=== PATIENT | female | born 1985 | race Caucasian/White ===

== ENCOUNTER 2017-04-28 16:16 | Inpatient (IN) | payer MEDICAID, OTHER ==
[~2017-04-28] VITALS: Ht 160 cm; Wt 59.0 kg
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
[2017-04-28 16:48] LABS: BASOPHILS % (AUTO) 0.4 % (0.0-2.0); EOSINOPHILS % (AUTO) 0.5 % (0.0-3.0); LYMPHOCYTES % (AUTO) 20.9 % (20.0-45.0); MEAN CORPUSCULAR HEMOGLOBIN 31.6 PG (27.0-31.0); MEAN CORPUSCULAR VOLUME 96 FL (80-99); MEAN PLATELET VOLUME 6.8 FL (6.5-10.1); MONOCYTES % (AUTO) 5.4 % (1.0-10.0); NEUTROPHILS % (AUTO) 72.8 % (45.0-75.0); PLATELET COUNT 382 K/UL (150-450); RED BLOOD COUNT 4.31 M/UL (4.20-5.40); RED CELL DISTRIBUTION WIDTH 12.2 % (11.6-14.8); WHITE BLOOD COUNT 10.4 K/UL (4.8-10.8)
[2017-04-28 16:59] LABS: APPEARANCE,URINE CLEAR; KETONES,URINE NEGATIVE (NEGATIVE); LEUKOCYTE ESTERASE ,URINE 1+ (NEGATIVE); NITRITE,URINE NEGATIVE (NEGATIVE); PH,URINE 9 (4.5-8.0); PROTEIN,URINE NEGATIVE (NEGATIVE); UROBILINOGEN,URINE NORMAL MG/DL (0.0-1.0)
[2017-04-28 17:08] LABS: ACETAMINOPHEN < 10 ug/mL (10-30); ALANINE AMINOTRANSFERASE 12 U/L (3-33); ALBUMIN/GLOBULIN RATIO 1.8 (1.0-2.7); ALCOHOL < 10 mg/dL; ANION GAP 17 (5-15); ASPARTATE AMINO TRANSFERASE 10 U/L (5-40); CALCIUM 9.8 mg/dL (8.6-10.2); CARBON DIOXIDE 25 mEQ/L (20-30); CHLORIDE 100 mEQ/L (98-107); CREATININE 0.8 mg/dL (0.5-0.9); GLOMERULAR FILTRATION RATE > 60 mL/min (>60); HEMOLYSIS 0; POTASSIUM 3.8 mEQ/L (3.4-4.9); SODIUM 142 mEQ/L (135-145); TOTAL PROTEIN 7.5 g/dL (6.6-8.7)
[2017-04-28 17:12] VITALS: BP 94/50
[2017-04-28 17:16] LABS: BACTERIA,URINE FEW /HPF; RBC,URINE 0-2 /HPF (0 - 2); SQUAMOUS EPITHELIAL CELL,UR FEW /LPF (NONE/OCC)
[2017-04-28 19:03] LABS: ABG BASE EXCESS -2.6
[2017-04-28 19:04] LABS: ABG ALLEN TEST POSITIVE
[2017-04-28] MEDS ORDERED: UNOBMED (19:11)
[2017-04-28 19:12] VITALS: BP 135/72
[2017-04-28] MEDS ORDERED: TOPAMAX25 MG ORAL (19:19)
[2017-04-28] MEDS ORDERED: GABAPENTIN800 MG ORAL (19:19)
[2017-04-28] MEDS ORDERED: PROPRANOLOL HCL40 MG ORAL (19:19)
[2017-04-28 20:12] VITALS: BP 138/74
[2017-04-28 21:12] VITALS: BP 135/78
[2017-04-28 22:00] VITALS: BP 154/73
[2017-04-28] MEDS ORDERED: Morphine Sulfate 4mg/ml Inj IVP PRN (22:15)
[2017-04-28] MEDS ORDERED: Nitroglycerin Subl 0.4mg tab (Bottle Of 25) SL PRN (22:15)
[2017-04-28] MEDS ORDERED: DuoNeb 0.5-3(2.5)mg/3ml neb HHN PRN (22:15)
[2017-04-28] MEDS ORDERED: LORazepam Inj 2mg/ml 1ml IV PRN (22:15)
[2017-04-28 23:00] VITALS: BP 144/74
[2017-04-28] MEDS: D5 1/2NS 1,000 ML IV SCH (23:33)
[2017-04-29] VITALS (20 sets, daily range): BP systolic 86–147; BP diastolic 57–82
[2017-04-29 05:14] LABS: BASOPHILS % (AUTO) 0.3 % (0.0-2.0); EOSINOPHILS % (AUTO) 0.3 % (0.0-3.0); LYMPHOCYTES % (AUTO) 16.5 % (20.0-45.0); MEAN CORPUSCULAR HEMOGLOBIN 31.6 PG (27.0-31.0); MEAN CORPUSCULAR HGB CONC 33.1 G/DL (32.0-36.0); MEAN CORPUSCULAR VOLUME 96 FL (80-99); MEAN PLATELET VOLUME 7.3 FL (6.5-10.1); MONOCYTES % (AUTO) 8.4 % (1.0-10.0); NEUTROPHILS % (AUTO) 74.5 % (45.0-75.0); PLATELET COUNT 374 K/UL (150-450); RED BLOOD COUNT 3.97 M/UL (4.20-5.40); RED CELL DISTRIBUTION WIDTH 12.1 % (11.6-14.8); WHITE BLOOD COUNT 12.7 K/UL (4.8-10.8)
[2017-04-29 05:52] LABS: ALANINE AMINOTRANSFERASE 10 U/L (3-33); ASPARTATE AMINO TRANSFERASE 8 U/L (5-40); BILIRUBIN,DIRECT 0.1 mg/dL (0.1-0.3); HEMOLYSIS 3; LACTATE DEHYDROGENASE 132 U/L (135-230); PHOSPHORUS 2.5 mg/dL (2.5-4.8)
[2017-04-29 06:21] LABS: ALANINE AMINOTRANSFERASE 9 U/L (3-33); ALBUMIN/GLOBULIN RATIO 1.7 (1.0-2.7); ANION GAP 17 (5-15); ASPARTATE AMINO TRANSFERASE 9 U/L (5-40); CALCIUM 9.1 mg/dL (8.6-10.2); CARBON DIOXIDE 19 mEQ/L (20-30); CHLORIDE 104 mEQ/L (98-107); CREATININE 0.7 mg/dL (0.5-0.9); GLOMERULAR FILTRATION RATE > 60 mL/min (>60); HEMOLYSIS 6; POTASSIUM 3.8 mEQ/L (3.4-4.9); SODIUM 140 mEQ/L (135-145)
[2017-04-29] MEDS ORDERED: Heparin 5000 units/ml inj SUBQ SCH ×2 (09:00→21:00)
--- NOTE | 2017-04-29 10:23 | History and Physical ---
History of Present Illness General Date patient seen: Apr 29, 2017 Reason for Hospitalization: Altered Level of Consciousness Present Illness HPI 32 year old female with hx of PTSD and depression, Eating disorder brought in from a drug recovery facility with cc of decreasing mentation there. 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 Paramedics initially stated that her John Coma Scale was 3. She vomited. She was obtundet in Er and was intubated and transferred to ICU. Allergies: Coded Allergies: No Known Allergies (Unverified , 04/28/17) Medication History Scheduled Gabapentin* (Gabapentin*), 1,200 MG ORAL THREE TIMES A DAY, (Reported) Propranolol Hcl* (Inderal*), 40 MG ORAL BID, (Reported) Topiramate* (Topamax*), 50 MG ORAL DAILY, (Reported) Miscellaneous Medications Unable to Obtain Medications (Unable To Obtain Meds), (Reported) Patient History Healthcare decision maker Resuscitation status Advanced Directive on File No Past Medical/Surgical History Past Medical/Surgical History: (1) PTSD (post-traumatic stress disorder) Review of Systems All Other Systems: negative except mentioned in HPI Physical Exam General Appearance: WD/WN, no apparent distress Lines, tubes and drains: peripheral, central line HEENT: normocephalic, atraumatic Neck: non-tender, normal alignment Respiratory/Chest: chest wall non-tender, lungs clear Cardiovascular/Chest: normal peripheral pulses, normal rate Abdomen: normal bowel sounds, non tender Genitourinary/Rectal: normal genital exam, normal rectal exam Extremities: normal range of motion Neurologic: charge master coordinator II-XII grossly normal Last 24 Hour Vital Signs Date Time Temp Pulse Resp B/P Pulse Ox O2 Delivery O2 Flow Rate FiO2 04/29/17 09:00 49 18 107/62 100 Mechanical Ventilator 04/29/17 08:30 54 16 04/29/17 08:00 54 04/29/17 08:00 04/29/17 08:00 98.4 54 16 108/67 100 Mechanical Ventilator 04/29/17 07:00 53 16 110/62 100 Mechanical Ventilator 04/29/17 06:53 59 16 04/29/17 06:00 54 16 109/63 100 Mechanical Ventilator 04/29/17 05:02 46 16 04/29/17 05:00 52 16 115/64 100 Mechanical Ventilator 28 04/29/17 04:00 50 16 122/65 100 Mechanical Ventilator 28 04/29/17 04:00 54 04/29/17 04:00 28 04/29/17 03:08 46 16 28 04/29/17 03:00 42 16 109/63 100 Mechanical Ventilator 28 04/29/17 02:00 42 16 134/64 100 Mechanical Ventilator 28 04/29/17 01:08 44 16 28 04/29/17 01:00 51 16 123/69 100 Mechanical Ventilator 28 04/29/17 00:00 97.6 43 16 136/73 100 Mechanical Ventilator 28 04/28/17 23:01 42 16 100 Mechanical Ventilator 28 04/28/17 23:00 46 16 144/74 100 Mechanical Ventilator 28 04/28/17 23:00 28 04/28/17 22:48 28 04/28/17 22:48 41 16 100 Mechanical Ventilator 28 04/28/17 22:46 41 16 28 04/28/17 22:00 42 04/28/17 22:00 41 16 154/73 100 Mechanical Ventilator 28 04/28/17 21:41 97.2 43 16 135/78 100 Mechanical Ventilator 28 04/28/17 21:12 97.2 43 16 135/78 100 Mechanical Ventilator 28 04/28/17 20:40 57 18 28 04/28/17 20:12 41 16 138/74 100 Mechanical Ventilator 28 04/28/17 19:12 41 16 135/72 100 Mechanical Ventilator 28 04/28/17 18:33 28 04/28/17 18:30 55 16 28 04/28/17 18:27 55 16 Mechanical Ventilator 28 04/28/17 17:12 48 15 94/50 100 Room Air 04/28/17 16:11 97.2 50 16 104/58 97 Room Air Intake and Output 04/28/17 04/29/17 19:00 07:00 Intake Total 600 ml Output Total 45 ml 2140 ml Balance -45 ml -1540 ml Intake Oral 0 ml IV Total 600 ml Output Urine Total 45 ml 2140 ml Laboratory Tests Test 04/28/17 16:21 04/28/17 16:29 04/28/17 18:58 04/29/17 04:10 White Blood Count 10.4 K/UL (4.8-10.8) 12.7 K/UL (4.8-10.8) H Red Blood Count 4.31 M/UL (4.20-5.40) 3.97 M/UL (4.20-5.40) L Hemoglobin 13.6 G/DL (12.0-16.0) 12.5 G/DL (12.0-16.0) Hematocrit 41.2 % (37.0-47.0) 37.9 % (37.0-47.0) Mean Corpuscular Volume 96 FL (80-99) 96 FL (80-99) Mean Corpuscular Hemoglobin 31.6 PG (27.0-31.0) H 31.6 PG (27.0-31.0) H Mean Corpuscular Hemoglobin Concent 33.0 G/DL (32.0-36.0) 33.1 G/DL (32.0-36.0) Red Cell Distribution Width 12.2 % (11.6-14.8) 12.1 % (11.6-14.8) Platelet Count 382 K/UL (150-450) 374 K/UL (150-450) Mean Platelet Volume 6.8 FL (6.5-10.1) 7.3 FL (6.5-10.1) Neutrophils (%) (Auto) 72.8 % (45.0-75.0) 74.5 % (45.0-75.0) Lymphocytes (%) (Auto) 20.9 % (20.0-45.0) 16.5 % (20.0-45.0) L Monocytes (%) (Auto) 5.4 % (1.0-10.0) 8.4 % (1.0-10.0) Eosinophils (%) (Auto) 0.5 % (0.0-3.0) 0.3 % (0.0-3.0) Basophils (%) (Auto) 0.4 % (0.0-2.0) 0.3 % (0.0-2.0) Sodium Level 142 mEQ/L (135-145) 140 mEQ/L (135-145) Potassium Level 3.8 mEQ/L (3.4-4.9) 3.8 mEQ/L (3.4-4.9) Chloride Level 100 mEQ/L (98-107) 104 mEQ/L (98-107) Carbon Dioxide Level 25 mEQ/L (20-30) 19 mEQ/L (20-30) L Anion Gap 17 (5-15) H 17 (5-15) H Blood Urea Nitrogen 8 mg/dL (7-23) 6 mg/dL (7-23) L Creatinine 0.8 mg/dL (0.5-0.9) 0.7 mg/dL (0.5-0.9) Estimat Glomerular Filtration Rate > 60 mL/min (>60) > 60 mL/min (>60) Glucose Level 148 mg/dL (74-106) H 116 mg/dL (74-106) H Calcium Level 9.8 mg/dL (8.6-10.2) 9.1 mg/dL (8.6-10.2) Total Bilirubin 0.2 mg/dL (0.0-1.2) < 0.2 mg/dL (0.0-1.2) Aspartate Amino Transf (AST/SGOT) 10 U/L (5-40) 9 U/L (5-40) Alanine Aminotransferase (ALT/SGPT) 12 U/L (3-33) 9 U/L (3-33) Alkaline Phosphatase 76 U/L (35-104) 62 U/L (35-104) Total Protein 7.5 g/dL (6.6-8.7) 6.0 g/dL (6.6-8.7) L Albumin 4.9 g/dL (3.5-5.2) 3.8 g/dL (3.5-5.2) Globulin 2.6 g/dL 2.2 g/dL Albumin/Globulin Ratio 1.8 (1.0-2.7) 1.7 (1.0-2.7) Salicylates Level < 1 mg/dL (10-30) L Acetaminophen Level < 10 ug/mL (10-30) L Serum Alcohol < 10 mg/dL Urine Color Pale yellow Urine Appearance Clear Urine pH 9 (4.5-8.0) Urine Specific [place] 1.015 (1.005-1.035) Urine Protein Negative (NEGATIVE) Urine Glucose (UA) Negative (NEGATIVE) Urine Ketones Negative (NEGATIVE) Urine Occult Blood Negative (NEGATIVE) Urine Nitrite Negative (NEGATIVE) Urine Bilirubin Negative (NEGATIVE) Urine Urobilinogen Normal MG/DL (0.0-1.0) Urine Leukocyte Esterase 1+ (NEGATIVE) H Urine RBC 0-2 /HPF (0 - 2) Urine WBC 2-4 /HPF (0 - 2) Urine Squamous Epithelial Cells Few /LPF (NONE/OCC) Urine Bacteria Few /HPF (NONE) Urine HCG, Qualitative Negative Urine Opiates Screen Negative (NEGATIVE) Urine Barbiturates Screen Negative (NEGATIVE) Phencyclidine (PCP) Screen Negative (NEGATIVE) Urine Amphetamines Screen Negative (NEGATIVE) Urine Benzodiazepines Screen Positive (NEGATIVE) H Urine Cocaine Screen Negative (NEGATIVE) Urine Marijuana (THC) Screen Negative (NEGATIVE) Arterial Blood pH 7.398 (7.350-7.450) Arterial Blood Partial Pressure CO2 36.0 mmHg (35.0-45.0) Arterial Blood Partial Pressure O2 146.4 mmHg (75.0-100.0) H Arterial Blood HCO3 21.7 mmol/L (22.0-26.0) L Arterial Blood Oxygen Saturation 98.4 % (92.0-98.0) H Arterial Blood Base Excess -2.6 [place] Test Positive Prothrombin Time 10.0 SEC (9.30-11.50) Prothromb Time International Ratio 1.0 (0.9-1.1) Activated Partial Thromboplast Time 28 SEC (23-33) Phosphorus Level 2.5 mg/dL (2.5-4.8) Direct Bilirubin 0.1 mg/dL (0.1-0.3) Lactate Dehydrogenase 132 U/L (135-230) L Height (Feet): 5 Height (Inches): 3.00 Weight (Pounds): 130 Medications Current Medications Medications (Trade) Dose Ordered Sig/Joshua Route PRN Reason Start Time Stop Time Status Last Admin Dose Admin Acetaminophen (Tylenol) 650 mg Q4H PRN ORAL Fever 04/28/17 22:15 05/28/17 22:14 Albuterol/ Ipratropium (DuoNeb 0.5-3(2.5)mg/3ml) 3 ml Q4H PRN HHN Shortness of Breath 04/28/17 22:15 05/03/17 22:14 04/28/17 22:49 Dextrose (Dextrose 50%) STAT PRN IV Hypoglycemia 04/28/17 22:15 05/28/17 22:14 Dextrose/Sodium Chloride (D5 0.45% NS) 1,000 ml @ 75 mls/hr [id number] IV 04/28/17 23:00 05/28/17 22:59 04/28/17 23:33 Heparin Sodium (Porcine) (Heparin 5000 units/ml) 5,000 units EVERY 12 HOURS SUBQ 04/29/17 09:00 05/29/17 08:59 04/29/17 09:35 Lorazepam (Ativan 2mg/ml 1ml) 2 mg Q2H PRN IV agitation 04/28/17 22:15 05/05/17 22:14 Morphine Sulfate (Morphine Sulfate) 4 mg Q4H PRN IVP Severe Pain (Pain Scale 7-10) 04/28/17 22:15 05/05/17 22:14 Nitroglycerin (Ntg) 0.4 mg Q5M PRN SL Prn Chest Pain 04/28/17 22:15 05/28/17 22:14 Ondansetron HCl (Zofran) 4 mg Q6H PRN IVP Nausea & Vomiting 04/28/17 22:15 05/28/17 22:14 Assessment/Plan Problem List: (1) Respiratory failure ICD Codes: J96.90 - Respiratory failure, unspecified, unspecified whether with hypoxia or hypercapnia SNOMED: 395004602 Qualifiers: Qualified Codes: J96.01 - Acute respiratory failure with hypoxia; J96.02 - Acute respiratory failure with hypercapnia (2) PTSD (post-traumatic stress disorder) ICD Codes: F43.10 - Post-traumatic stress disorder, unspecified SNOMED: 75045584 (3) Overdose ICD Codes: T50.901A - Poisoning by unspecified drugs, medicaments and biological substances, accidental (unintentional), initial encounter SNOMED: 44852978 Qualifiers: Qualified Codes: T50.902A - Poisoning by unspecified drugs, medicaments and biological substances, intentional self-harm, initial encounter (4) Acute encephalopathy ICD Codes: G93.40 - Encephalopathy, unspecified SNOMED: 9189306 Respiratory: monitor respiratory rate, adjust FIO2, weaning trial Cardiac: d/c monitoring engineer Renal: F/U I&O, keep IV fluid Infectious Disease: check cultures Gastrointestinal: continue feedings/current rate Endocrine: continue sliding scale insulin Hematologic: transfuse if hgb<8.5 Neurologic: PRN Ativan, PRN Morphine, keep patient comfortable Notes Reviewed: radiosonde specialist, renal Discussed with: nurses, consultants, family independence case manager MARLYN SERRANO Apr 29, 2017 10:23
[2017-04-29] MEDS: D5 1/2NS 1,000 ML IV SCH ×2 (12:16→17:50)
--- NOTE | 2017-04-29 12:20 | Diagnostic Imaging Report ---
Indication: Is Technique: Continuous helical CT scanning of the head was performed without intravenous contrast material. Axial and coronal 5 mm sections were generated. Radiation dose was minimized using automated exposure control Dose: Total Dose Length Product - DLP [address] Dose Index - CTDIvol(s) 70.38 mGy. Comparison: None Findings: The ventricular system is normal in size and configuration. There is no shift of midline structures. No abnormal extra-axial fluid collections are noted. There is no evidence of intracerebral bleeding. No other abnormal high or low density areas are noted within the brain. Impression: Normal CT scan of the head without contrast material. This agrees with the preliminary interpretation provided overnight by Dr. Hartman The CT scanner at [facility] is accredited by the [employer] and the scans are performed using protocols designed to limit radiation exposure to as low as reasonably achievable to attain images of sufficient resolution adequate for diagnostic evaluation.
--- NOTE | 2017-04-29 13:43 | Neurology Progress Note ---
Objective Physical Exam Last Vital Signs Date Time Temp Pulse Resp B/P Pulse Ox O2 Delivery O2 Flow Rate FiO2 04/29/17 12:36 57 16 28 04/29/17 12:00 99.0 110/76 100 Mechanical Ventilator Laboratory Tests Test 04/28/17 16:21 04/28/17 16:29 04/28/17 18:58 04/29/17 04:10 White Blood Count 10.4 K/UL (4.8-10.8) 12.7 K/UL (4.8-10.8) H Red Blood Count 4.31 M/UL (4.20-5.40) 3.97 M/UL (4.20-5.40) L Hemoglobin 13.6 G/DL (12.0-16.0) 12.5 G/DL (12.0-16.0) Hematocrit 41.2 % (37.0-47.0) 37.9 % (37.0-47.0) Mean Corpuscular Volume 96 FL (80-99) 96 FL (80-99) Mean Corpuscular Hemoglobin 31.6 PG (27.0-31.0) H 31.6 PG (27.0-31.0) H Mean Corpuscular Hemoglobin Concent 33.0 G/DL (32.0-36.0) 33.1 G/DL (32.0-36.0) Red Cell Distribution Width 12.2 % (11.6-14.8) 12.1 % (11.6-14.8) Platelet Count 382 K/UL (150-450) 374 K/UL (150-450) Mean Platelet Volume 6.8 FL (6.5-10.1) 7.3 FL (6.5-10.1) Neutrophils (%) (Auto) 72.8 % (45.0-75.0) 74.5 % (45.0-75.0) Lymphocytes (%) (Auto) 20.9 % (20.0-45.0) 16.5 % (20.0-45.0) L Monocytes (%) (Auto) 5.4 % (1.0-10.0) 8.4 % (1.0-10.0) Eosinophils (%) (Auto) 0.5 % (0.0-3.0) 0.3 % (0.0-3.0) Basophils (%) (Auto) 0.4 % (0.0-2.0) 0.3 % (0.0-2.0) Sodium Level 142 mEQ/L (135-145) 140 mEQ/L (135-145) Potassium Level 3.8 mEQ/L (3.4-4.9) 3.8 mEQ/L (3.4-4.9) Chloride Level 100 mEQ/L (98-107) 104 mEQ/L (98-107) Carbon Dioxide Level 25 mEQ/L (20-30) 19 mEQ/L (20-30) L Anion Gap 17 (5-15) H 17 (5-15) H Blood Urea Nitrogen 8 mg/dL (7-23) 6 mg/dL (7-23) L Creatinine 0.8 mg/dL (0.5-0.9) 0.7 mg/dL (0.5-0.9) Estimat Glomerular Filtration Rate > 60 mL/min (>60) > 60 mL/min (>60) Glucose Level 148 mg/dL (74-106) H 116 mg/dL (74-106) H Calcium Level 9.8 mg/dL (8.6-10.2) 9.1 mg/dL (8.6-10.2) Total Bilirubin 0.2 mg/dL (0.0-1.2) < 0.2 mg/dL (0.0-1.2) Aspartate Amino Transf (AST/SGOT) 10 U/L (5-40) 9 U/L (5-40) Alanine Aminotransferase (ALT/SGPT) 12 U/L (3-33) 9 U/L (3-33) Alkaline Phosphatase 76 U/L (35-104) 62 U/L (35-104) Total Protein 7.5 g/dL (6.6-8.7) 6.0 g/dL (6.6-8.7) L Albumin 4.9 g/dL (3.5-5.2) 3.8 g/dL (3.5-5.2) Globulin 2.6 g/dL 2.2 g/dL Albumin/Globulin Ratio 1.8 (1.0-2.7) 1.7 (1.0-2.7) Salicylates Level < 1 mg/dL (10-30) L Acetaminophen Level < 10 ug/mL (10-30) L Serum Alcohol < 10 mg/dL Urine Color Pale yellow Urine Appearance Clear Urine pH 9 (4.5-8.0) Urine Specific [place] 1.015 (1.005-1.035) Urine Protein Negative (NEGATIVE) Urine Glucose (UA) Negative (NEGATIVE) Urine Ketones Negative (NEGATIVE) Urine Occult Blood Negative (NEGATIVE) Urine Nitrite Negative (NEGATIVE) Urine Bilirubin Negative (NEGATIVE) Urine Urobilinogen Normal MG/DL (0.0-1.0) Urine Leukocyte Esterase 1+ (NEGATIVE) H Urine RBC 0-2 /HPF (0 - 2) Urine WBC 2-4 /HPF (0 - 2) Urine Squamous Epithelial Cells Few /LPF (NONE/OCC) Urine Bacteria Few /HPF (NONE) Urine HCG, Qualitative Negative Urine Opiates Screen Negative (NEGATIVE) Urine Barbiturates Screen Negative (NEGATIVE) Phencyclidine (PCP) Screen Negative (NEGATIVE) Urine Amphetamines Screen Negative (NEGATIVE) Urine Benzodiazepines Screen Positive (NEGATIVE) H Urine Cocaine Screen Negative (NEGATIVE) Urine Marijuana (THC) Screen Negative (NEGATIVE) Arterial Blood pH 7.398 (7.350-7.450) Arterial Blood Partial Pressure CO2 36.0 mmHg (35.0-45.0) Arterial Blood Partial Pressure O2 146.4 mmHg (75.0-100.0) H Arterial Blood HCO3 21.7 mmol/L (22.0-26.0) L Arterial Blood Oxygen Saturation 98.4 % (92.0-98.0) H Arterial Blood Base Excess -2.6 [place] Test Positive Prothrombin Time 10.0 SEC (9.30-11.50) Prothromb Time International Ratio 1.0 (0.9-1.1) Activated Partial Thromboplast Time 28 SEC (23-33) Phosphorus Level 2.5 mg/dL (2.5-4.8) Direct Bilirubin 0.1 mg/dL (0.1-0.3) Lactate Dehydrogenase 132 U/L (135-230) L Impression/Recommendations Problems: (1) new onset R shoulder twitching, r/o partial seizures. (2) Suicidal overdose (3) Toxic encephalopathy (4) Sinus bradycardia (5) PTSD (post-traumatic stress disorder) Status: not improved Recommendations # [id number] ASHLEY MORALES Apr 29, 2017 13:43
--- NOTE | 2017-04-29 13:51 | Diagnostic Imaging Report ---
Indication: ALOC Technique: One view of the chest Comparison: none Findings: Lungs and pleural spaces are clear. Heart size is normal. Transcutaneous pacemaker paddles overlie the chest. Impression: No acute process This agrees with the preliminary interpretation provided by the emergency room physician
[2017-04-29] MEDS ORDERED: SYNTHROID50 MCG ORAL (14:21)
[2017-04-29] MEDS ORDERED: VISTARIL25 M1 PO (14:21)
[2017-04-29] MEDS ORDERED: LIORESAL20 MG (14:21)
[2017-04-29] MEDS ORDERED: ZYPREXA20 MG ORAL (14:21)
[2017-04-29] MEDS ORDERED: LAMICTAL200 MG ORAL (14:21)
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
[2017-04-29] MEDS ORDERED: Nitroglycerin Subl 0.4mg tab (Bottle Of 25) SL PRN (17:30)
[2017-04-29] MEDS ORDERED: Thiamine 100mg tab ORAL SCH ×2 (18:00)
[2017-04-29] MEDS ORDERED: DuoNeb 0.5-3(2.5)mg/3ml neb HHN PRN (18:15)
[2017-04-29] MEDS ORDERED: LORazepam Inj 2mg/ml 1ml IV PRN (18:15)
[2017-04-29] MEDS ORDERED: Morphine Sulfate 4mg/ml Inj IVP PRN (18:15)
[2017-04-29] MEDS ORDERED: Topiramate 25mg tab ORAL SCH ×2 (21:00)
[2017-04-30] VITALS (9 sets, daily range): BP systolic 83–96; BP diastolic 47–59
--- NOTE | 2017-04-30 00:40 | Consultation ---
Consult Note Consult Note the pt was seen and assessed 04/29. Jeff Mojica M.D. Apr 30, 2017 00:40
[2017-04-30] MEDS: D5 1/2NS 1,000 ML IV SCH ×3 (01:02→18:34)
[2017-04-30] MEDS ORDERED: Nitroglycerin Subl 0.4mg tab (Bottle Of 25) SL PRN (07:05)
[2017-04-30] MEDS ORDERED: LORazepam Inj 2mg/ml 1ml IV PRN (08:15)
--- NOTE | 2017-04-30 08:23 | Diagnostic Imaging Report ---
Indication: TUBE PLCMT Technique: One view of the chest Comparison: none Findings: Interim endotracheal intubation, endotracheal tube tip approximately 4 cm above the glen, in good position. The lungs and pleural spaces are clear. Overlying transcutaneous pacemaker paddles again demonstrated Impression: Satisfactory endotracheal intubation. Other stable findings as noted This agrees with the preliminary interpretation provided by the emergency room physician
[2017-04-30 08:39] LABS: BASOPHILS % (AUTO) 0.3 % (0.0-2.0); EOSINOPHILS % (AUTO) 0.3 % (0.0-3.0); LYMPHOCYTES % (AUTO) 22.2 % (20.0-45.0); MEAN CORPUSCULAR HEMOGLOBIN 31.4 PG (27.0-31.0); MEAN CORPUSCULAR HGB CONC 33.1 G/DL (32.0-36.0); MEAN CORPUSCULAR VOLUME 95 FL (80-99); MEAN PLATELET VOLUME 7.2 FL (6.5-10.1); MONOCYTES % (AUTO) 11.3 % (1.0-10.0); PLATELET COUNT 336 K/UL (150-450); RED BLOOD COUNT 3.85 M/UL (4.20-5.40); RED CELL DISTRIBUTION WIDTH 12.4 % (11.6-14.8); WHITE BLOOD COUNT 9.5 K/UL (4.8-10.8)
[2017-04-30 08:49] LABS: ALANINE AMINOTRANSFERASE 8 U/L (3-33); ALBUMIN/GLOBULIN RATIO 1.5 (1.0-2.7); ANION GAP 14 (5-15); ASPARTATE AMINO TRANSFERASE 6 U/L (5-40); CARBON DIOXIDE 22 mEQ/L (20-30); CHLORIDE 105 mEQ/L (98-107); CREATININE 0.7 mg/dL (0.5-0.9); GLOMERULAR FILTRATION RATE > 60 mL/min (>60); HEMOLYSIS 2; MAGNESIUM 1.9 mg/dL (1.7-2.5); PHOSPHORUS 3.3 mg/dL (2.5-4.8); POTASSIUM 3.5 mEQ/L (3.4-4.9); SODIUM 141 mEQ/L (135-145)
[2017-04-30] MEDS ORDERED: Pantoprazole Inj IVP SCH (09:00)
[2017-04-30] MEDS ORDERED: Topiramate 25mg tab ORAL SCH (09:00)
[2017-04-30] MEDS: Thiamine 100mg tab ORAL SCH (09:20)
[2017-04-30] MEDS: Heparin 5000 units/ml inj SUBQ SCH ×2 (09:22→20:17)
--- NOTE | 2017-04-30 09:44 | Pulmonology Progress Note ---
Assessment/Plan Assessment/Plan ASSESSMENT acute toxic encepahlopathy2 to Valium OD Suicidal attempt with Valium OD acute respiratory failure requiting intubation s/p extubation possible seizure disorder History of bipolar disorder with several suicide episodes History of eating disorder. History of substance abuse. PLAN OF CARE extubated urine tox scrren + benzo [facility] floor neuro follows CT head no acute intracranial pathology Carotid essentially negative EEG c/w toxic encephalopathy but no postictal component started on Topamax and Neurontin seizure precautions IVF started po diet clinically improving no sedation DVT prophylaxis psych follows need psych clearance case discussed and evaluated by supervising physician Subjective Allergies: Coded Allergies: No Known Allergies (Unverified , 04/28/17) Subjective extubated transferred to [facility] floor patient stated she does not remember which meds she took Objective Last 24 Hour Vital Signs Date Time Temp Pulse Resp B/P Pulse Ox O2 Delivery O2 Flow Rate FiO2 04/30/17 09:33 54 88/47 04/30/17 09:27 97.7 20 99 Nasal Cannula 2.0 04/30/17 08:16 98.1 58 21 88/59 98 Nasal Cannula 2.0 04/30/17 07:38 79 16 Room Air 04/30/17 04:00 63 04/30/17 04:00 97.0 60 20 96/58 98 Room Air 04/30/17 00:00 60 04/30/17 00:00 97.2 66 20 91/57 Room Air 04/29/17 20:19 75 18 Room Air 04/29/17 20:00 76 04/29/17 20:00 97.7 75 20 94/57 98 Room Air 04/29/17 17:59 97.5 62 16 98/58 99 Room Air 04/29/17 17:00 60 18 86/59 100 Nasal Cannula 2.0 04/29/17 16:00 98.6 61 18 97/60 100 Nasal Cannula 2.0 04/29/17 16:00 60 04/29/17 15:00 64 19 99/63 100 Nasal Cannula 2.0 04/29/17 14:00 85 18 147/82 100 Nasal Cannula 2.0 04/29/17 13:03 71 18 147/62 100 Nasal Cannula 2.0 04/29/17 12:36 57 16 28 04/29/17 12:00 28 04/29/17 12:00 61 04/29/17 12:00 99.0 62 16 110/76 100 Mechanical Ventilator 28 04/29/17 11:03 61 16 28 04/29/17 11:00 66 16 128/68 100 Mechanical Ventilator 28 04/29/17 10:00 55 16 112/67 100 Mechanical Ventilator 28 Intake and Output 04/29/17 04/30/17 19:00 07:00 Intake Total 635 ml 750 ml Output Total 1250 ml 1400 ml Balance -615 ml -650 ml Intake Oral 0 ml IV Total 635 ml 750 ml Output Urine Total 1250 ml 1400 ml General Appearance: WD/WN, no acute distress HEENT: normocephalic, atraumatic, anicteric, mucous membranes moist, PERRL Respiratory/Chest: chest wall non-tender, no respiratory distress, no accessory muscle use Cardiovascular: normal peripheral pulses, normal rate, regular rhythm, no JVD Abdomen: normal bowel sounds, soft, non tender, no organomegaly Genitourinary: normal external genitalia Extremities: no edema Neurologic/Psychiatric: no motor/sensory deficits, alert, oriented x 3, responsive Musculoskeletal: normal muscle bulk Laboratory Tests 04/30/17 08:00: White Blood Count 9.5, Red Blood Count 3.85L, Hemoglobin 12.1, Hematocrit 36.5L , Mean Corpuscular Volume 95, Mean Corpuscular Hemoglobin 31.4H, Mean Corpuscular Hemoglobin Concent 33.1, Red Cell Distribution Width 12.4, Platelet Count 336, Mean Platelet Volume 7.2, Neutrophils (%) (Auto) 66.0, Lymphocytes (% ) (Auto) 22.2, Monocytes (%) (Auto) 11.3H, Eosinophils (%) (Auto) 0.3, Basophils (%) (Auto) 0.3, Sodium Level 141, Potassium Level 3.5, Chloride Level 105, Carbon Dioxide Level 22, Anion Gap 14, Blood Urea Nitrogen 5L, Creatinine 0.7, Estimat Glomerular Filtration Rate > 60, Glucose Level 111H, Calcium Level 9.0, Phosphorus Level 3.3, Magnesium Level 1.9, Total Bilirubin 0.2, Aspartate Amino Transf (AST/SGOT) 6, Alanine Aminotransferase (ALT/SGPT) 8, Alkaline Phosphatase 62, Total Protein 6.0L, Albumin 3.6, Globulin 2.4, Albumin/Globulin Ratio 1.5 Current Medications Medications (Trade) Dose Ordered Sig/Joshua Route PRN Reason Start Time Stop Time Status Last Admin Dose Admin Acetaminophen (Tylenol) 650 mg Q4H PRN ORAL Fever 04/30/17 10:15 05/30/17 10:14 Albuterol/ Ipratropium (DuoNeb 0.5-3(2.5)mg/3ml) 3 ml Q4H PRN HHN Shortness of Breath 04/30/17 10:15 05/05/17 10:14 Dextrose (Dextrose 50%) STAT PRN IV Hypoglycemia 04/30/17 22:15 05/30/17 22:14 Dextrose/Sodium Chloride (D5 0.45% NS) 1,000 ml @ 75 mls/hr [id number] IV 04/30/17 07:00 05/30/17 06:59 Escitalopram Oxalate (Lexapro) 10 mg DAILY ORAL 04/30/17 09:00 05/30/17 08:59 04/30/17 09:20 Gabapentin (Neurontin) 800 mg THREE TIMES A DAY ORAL 04/30/17 09:00 05/30/17 08:59 04/30/17 09:20 Heparin Sodium (Porcine) (Heparin 5000 units/ml) 5,000 units EVERY 12 HOURS SUBQ 04/30/17 09:00 05/30/17 08:59 04/30/17 09:22 Lorazepam (Ativan 2mg/ml 1ml) 2 mg Q2H PRN IV agitation 04/30/17 08:15 05/07/17 08:14 Morphine Sulfate (Morphine Sulfate) 4 mg Q4H PRN IVP Severe Pain (Pain Scale 7-10) 04/30/17 10:15 05/07/17 10:14 Nitroglycerin (Ntg) 0.4 mg Q5M PRN SL Prn Chest Pain 04/30/17 07:05 05/30/17 07:04 Ondansetron HCl (Zofran) 4 mg Q6H PRN IVP Nausea & Vomiting 04/30/17 10:15 05/30/17 10:14 Pantoprazole (Protonix) 40 mg DAILY ORAL 04/30/17 09:00 05/30/17 08:59 04/30/17 09:20 Thiamine HCl (Vitamin B1) 100 mg DAILY ORAL 04/30/17 09:00 05/30/17 08:59 04/30/17 09:20 Topiramate (Topamax) 50 mg DAILY ORAL 04/30/17 09:00 05/30/17 08:59 Zach ([facility])Elida NP Apr 30, 2017 09:44
[2017-04-30] MEDS ORDERED: Morphine Sulfate 4mg/ml Inj IVP PRN (10:15)
[2017-04-30] MEDS ORDERED: DuoNeb 0.5-3(2.5)mg/3ml neb HHN PRN (10:15)
[2017-04-30] MEDS: Topiramate 25mg tab ORAL SCH (11:34)
--- NOTE | 2017-04-30 12:41 | Diagnostic Imaging Report ---
APPROVED REPORT CPT Code: 54328 RIGHT SIDE: CCA - Imaging reveals no significant plaque within the extracranial carotid arteries. The Doppler spectral flow analysis is within normal limits throughout the extracranial carotid arteries. VERTEBRAL - The vertebral artery is patent, without evidence of stenosis or steal. LEFT SIDE: CCA - Imaging reveals no significant plaque within the extracranial carotid arteries. The Doppler spectral flow analysis is within normal limits throughout the extracranial carotid arteries. VERTEBRAL- The Left vertebral artery was not well visualized.
--- NOTE | 2017-04-30 16:27 | Neurology Progress Note ---
Interim History Interim History Interim History Ms. Curran feels better. She is alert and bright today. She is unable to remember the events that brought her to the hospital. She has had no twitching movements of her right upper extremity today. She denies any new neurologic symptoms. Review of Systems Neuro Review of Systems Benign. Objective Physical Exam Last Vital Signs Date Time Temp Pulse Resp B/P Pulse Ox O2 Delivery O2 Flow Rate FiO2 04/30/17 16:02 97.5 61 18 92/58 100 Room Air 04/30/17 11:50 2.0 04/29/17 12:36 28 Laboratory Tests Test 04/30/17 08:00 White Blood Count 9.5 K/UL (4.8-10.8) Red Blood Count 3.85 M/UL (4.20-5.40) L Hemoglobin 12.1 G/DL (12.0-16.0) Hematocrit 36.5 % (37.0-47.0) L Mean Corpuscular Volume 95 FL (80-99) Mean Corpuscular Hemoglobin 31.4 PG (27.0-31.0) H Mean Corpuscular Hemoglobin Concent 33.1 G/DL (32.0-36.0) Red Cell Distribution Width 12.4 % (11.6-14.8) Platelet Count 336 K/UL (150-450) Mean Platelet Volume 7.2 FL (6.5-10.1) Neutrophils (%) (Auto) 66.0 % (45.0-75.0) Lymphocytes (%) (Auto) 22.2 % (20.0-45.0) Monocytes (%) (Auto) 11.3 % (1.0-10.0) H Eosinophils (%) (Auto) 0.3 % (0.0-3.0) Basophils (%) (Auto) 0.3 % (0.0-2.0) Sodium Level 141 mEQ/L (135-145) Potassium Level 3.5 mEQ/L (3.4-4.9) Chloride Level 105 mEQ/L (98-107) Carbon Dioxide Level 22 mEQ/L (20-30) Anion Gap 14 (5-15) Blood Urea Nitrogen 5 mg/dL (7-23) L Creatinine 0.7 mg/dL (0.5-0.9) Estimat Glomerular Filtration Rate > 60 mL/min (>60) Glucose Level 111 mg/dL (74-106) H Calcium Level 9.0 mg/dL (8.6-10.2) Phosphorus Level 3.3 mg/dL (2.5-4.8) Magnesium Level 1.9 mg/dL (1.7-2.5) Total Bilirubin 0.2 mg/dL (0.0-1.2) Aspartate Amino Transf (AST/SGOT) 6 U/L (5-40) Alanine Aminotransferase (ALT/SGPT) 8 U/L (3-33) Alkaline Phosphatase 62 U/L (35-104) Total Protein 6.0 g/dL (6.6-8.7) L Albumin 3.6 g/dL (3.5-5.2) Globulin 2.4 g/dL Albumin/Globulin Ratio 1.5 (1.0-2.7) Neurologic Exam Objective PHYSICAL EXAMINATION: GENERAL: She is a well-developed, well-nourished, lady, lying in bed , in no acute distress. HEAD: Normocephalic and atraumatic. EENT: Examination benign. NECK: No neck rigidity was observed. NEUROLOGIC EXAMINATION: MENTAL STATUS EXAMINATION: She was awake and alert. She was oriented to [employer], [employer] and April 30, 2017. She was able to remember 3/3 words immediately and in 1 and 3 minutes. He was able to remember presidents Trump through Zimmerman [employer]. Her mathematical skills were good. Her visuospatial function was preserved. SPEECH: She had no dysarthria. LANGUAGE: She had no aphasia. CRANIAL NERVE EXAMINATION: II: The visual huynh were intact on confrontation testing. III, IV & : The external ocular movements were full and pupils 3 mm in diameter, equal, round, regular, and reactive to light. V: She had normal facial sensations and the temporales, masseters, and pterygoids functioned normally. VII: She had normal facial expressions and no facial asymmetry. VIII: She was able to hear well bilaterally and had no nystagmus. IX: The palate moved symmetrically on phonation. X: She had no hoarseness of voice. XI: The sternocleidomastoids and trapezii functioned normally. XII: The tongue was in midline without any fasciculations or atrophy. MOTOR SYSTEM: The tone was normal in all four extremities. Examination of muscle mass revealed no focal wasting. Examination of power revealed G 5/5 in all muscle groups except for G 4/5 in the left finger extensors. SENSORY EXAMINATION: She had intact sensations to pin prick and light touch. REFLEXES: 1+ and bilaterally symmetrical at the biceps, triceps, brachioradialis and knees. Trace+ at both ankles. The plantar responses were flexor bilaterally. STANCE: She stood up with contact guard. GAIT: She walked well with contact guard. Impression/Recommendations Diagnostic Impression 1. Ms. Christina Curran is a 32-year-old, right-handed, lady, who was hospitalized for an altered mental state due to a possible drug overdose. She was also noted to have some right upper extremity twitching. 2. She has improved markedly today and has had no further right upper extremity twitching. 3. On neurologic examination she has left finger extensor weakness and globally diminished reflexes but no other pathology. 4. The EEG revealed a moderate encephalopathy with a toxic component but no inter-ictal phenomena. 5. The patient's history and neurological examination are most compatible with a toxic encephalopathy that is now resolving.. Recommendations 1. Continue present management. 2. No further neurologic intervention is needed. 3. Will stop following. Humza Jo M.D., M.S.P.Emerita. HUMZA JO Apr 30, 2017 16:27
--- NOTE | 2017-04-30 16:46 | Electroencephalogram ---
DATE OF PROCEDURE: 04/29/2017 REQUESTING PHYSICIAN: Link Colon M.D. READING PHYSICIAN: Silas Acosta M.D. PROCEDURE PERFORMED: Electroencephalogram. HISTORY: This EEG was performed on a 32-year-old lady who was hospitalized for a drug overdose and was noted to have some abnormal involuntary movements of the right upper extremity. The purpose of this EEG was to evaluate the patient for the degree and type of cerebral dysfunction and to exclude ongoing ictal or interictal phenomena. TECHNICAL NOTE: This EEG was performed on a [employer] with electrodes placed on the scalp according to the International 10-20 System. [id number] and [id number] montages were used. The EEG was technically satisfactory and was performed while the patient was in the awake and drowsy states. OBSERVATIONS: During wakefulness, the background activity consisted of 6-6.5 Hz theta activity. Throughout the tracing, a moderate amount of superimposed 16-18 Hz beta activity was also seen. Drowsiness was characterized by slowing of the background in the 4-5 Hz theta range with some intermixed delta frequencies. No focal abnormalities or epileptiform discharges were seen. Photic stimulation was performed at various different frequencies and produced no abnormalities. IMPRESSION: This is an abnormal EEG characterized by slowing of the background in the 6-6.5 Hz theta range in the best awake state. In addition, throughout the tracing 16-18 Hz beta activity was also seen. COMMENT: This study is consistent with an encephalopathy of a moderate degree, most probably of a toxic nature as evidenced by the abundant beta activity seen throughout the tracing. Silas Acosta M.D., M.S.P.H. DR: LEAH JOB#: [id number] [facility] MED[facility] CENTERYohannes
--- NOTE | 2017-04-30 19:11 | Cardiology Report ---
APPROVED REPORT EKG Measurement Heart [id number] Sinus bradycardia Otherwise normal ECG
[2017-05-01] VITALS: BP 87/43
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
[2017-05-01 04:00] VITALS: BP 94/56
[2017-05-01 08:00] VITALS: BP 99/54
[2017-05-01] MEDS: Thiamine 100mg tab ORAL SCH (08:29)
[2017-05-01] MEDS: Topiramate 25mg tab ORAL SCH (08:29)
[2017-05-01] MEDS: Heparin 5000 units/ml inj SUBQ SCH (08:33)
[2017-05-01] MEDS: D5 1/2NS 1,000 ML IV SCH (08:36)
[2017-05-01 12:00] VITALS: BP 100/63
--- NOTE | 2017-05-01 12:39 | Pulmonology Progress Note ---
Assessment/Plan Assessment/Plan ASSESSMENT acute toxic encepahlopathy2 to Valium OD Suicidal attempt with Valium OD acute respiratory failure requiting intubation s/p extubation possible seizure disorder History of bipolar disorder with several suicide episodes History of eating disorder. History of substance abuse. PLAN OF CARE extubated urine tox screen + [facility] floor neuro follows CT head no acute intracranial pathology Carotid essentially negative EEG c/w toxic encephalopathy but no postictal component started on Topamax and Neurontin seizure precautions tolerates po diet dc IVf medically stable no sedation DVT prophylaxis psych follows patient medically cleared for PET team eval patient will need further psychiatric treatment patient is a high risk as per psychiatrist case discussed and evaluated by supervising physician Subjective Allergies: Coded Allergies: No Known Allergies (Unverified , 04/28/17) Subjective extubated subsequently transferred to [facility] floor patient stated she does not remember which meds she took psychiatrist follows Objective Last 24 Hour Vital Signs Date Time Temp Pulse Resp B/P Pulse Ox O2 Delivery O2 Flow Rate FiO2 05/01/17 12:00 97.7 59 20 100/63 99 Room Air 05/01/17 08:00 98.2 76 20 99/54 97 Room Air 05/01/17 06:44 76 15 Room Air 05/01/17 04:00 97.3 53 18 94/56 97 Room Air 05/01/17 00:00 97.5 55 18 87/43 96 Room Air 04/30/17 21:14 92/53 04/30/17 20:00 97.9 55 18 83/51 97 Room Air 04/30/17 18:53 59 17 Room Air 04/30/17 16:02 97.5 61 18 92/58 100 Room Air Intake and Output 04/30/17 05/01/17 19:00 07:00 Intake Total 1020 ml 900 ml Output Total 2000 ml 1200 ml Balance -980 ml -300 ml Intake Oral 1020 ml IV Total 900 ml Output Urine Total 2000 ml 1200 ml Objective General Appearance: WD/WN, no acute distress HEENT: normocephalic, atraumatic, anicteric, mucous membranes moist, PERRL Respiratory/Chest: chest wall non-tender, no respiratory distress, no accessory muscle use Cardiovascular: normal peripheral pulses, normal rate, regular rhythm, no JVD Abdomen: normal bowel sounds, soft, non tender, no organomegaly Genitourinary: normal external genitalia Extremities: no edema Neurologic/Psychiatric: no motor/sensory deficits, alert, oriented x 3, responsive Musculoskeletal: normal muscle bulk Current Medications Medications (Trade) Dose Ordered Sig/Joshua Route PRN Reason Start Time Stop Time Status Last Admin Dose Admin Acetaminophen (Tylenol) 650 mg Q4H PRN ORAL Fever 04/30/17 10:15 05/30/17 10:14 Albuterol/ Ipratropium (DuoNeb 0.5-3(2.5)mg/3ml) 3 ml Q4H PRN HHN Shortness of Breath 04/30/17 10:15 05/05/17 10:14 Dextrose (Dextrose 50%) STAT PRN IV Hypoglycemia 04/30/17 22:15 05/30/17 22:14 Dextrose/Sodium Chloride (D5 0.45% NS) 1,000 ml @ 75 mls/hr [id number] IV 04/30/17 07:00 05/30/17 06:59 05/01/17 08:36 Diazepam (Valium) 10 mg Q4H PRN ORAL agitation 04/30/17 15:00 05/07/17 14:59 Gabapentin (Neurontin) 800 mg THREE TIMES A DAY ORAL 04/30/17 09:00 05/30/17 08:59 05/01/17 08:29 Heparin Sodium (Porcine) (Heparin 5000 units/ml) 5,000 units EVERY 12 HOURS SUBQ 04/30/17 09:00 05/30/17 08:59 05/01/17 08:33 Morphine Sulfate (Morphine Sulfate) 4 mg Q4H PRN IVP Severe Pain (Pain Scale 7-10) 04/30/17 10:15 05/07/17 10:14 Nitroglycerin (Ntg) 0.4 mg Q5M PRN SL Prn Chest Pain 04/30/17 07:05 05/30/17 07:04 Ondansetron HCl (Zofran) 4 mg Q6H PRN IVP Nausea & Vomiting 04/30/17 10:15 05/30/17 10:14 Pantoprazole (Protonix) 40 mg DAILY ORAL 04/30/17 09:00 05/30/17 08:59 05/01/17 08:28 Quetiapine Fumarate (SEROquel) 100 mg BEDTIME ORAL 6/30/17 21:00 05/30/17 20:59 04/30/17 20:15 Thiamine HCl (Vitamin B1) 100 mg DAILY ORAL 04/30/17 09:00 05/30/17 08:59 05/01/17 08:29 Topiramate (Topamax) 50 mg DAILY ORAL 04/30/17 09:00 05/30/17 08:59 05/01/17 08:29 [facility]Elida NP May 01, 2017 12:39
[2017-05-01 16:00] VITALS: BP 98/67
[2017-05-01] MEDS ORDERED: D5 1/2NS 1000ml IV ONE ×3 (19:29)
[2017-05-01] MEDS ORDERED: Tubing IV Secondary IV ONE (19:29)
--- NOTE | 2017-05-03 08:09 | Cardiology Report ---
APPROVED REPORT EXAM: Two-dimensional and M-mode echocardiogram with Doppler and color Doppler. INDICATION LV function M-Mode DIMENSIONS IVSd0.9 (0.7-1.1cm)Left Atrium (MM)3.0 (1.6-4.0cm) LVDd3.3 (3.5-5.6cm)Aortic Root2.5 (2.0-3.7cm) PWd1.1 (0.7-1.1cm)Aortic Cusp Exc.1.6 (1.5-2.0cm) LVDs2.3 (2.5-4.0cm) PWs1.2 cm Normal left ventricular chamber size, systolic function and wall motion. Left ventricular ejection fraction estimated to be 55 %. No evidence of left ventricular hypertrophy. Anterior Echo-free space, may be due to pericardial fat or effusion. All other cardiac chamber sizes are within normal limits. Normal appearing aortic, mitral, puImonic and tricuspid valves. Mild mitral annulus and aortic root calcification. IVC at normal size with physiologic collapse. A color flow and spectral Doppler study was performed and revealed: No aortic regurgitation. Trace mitral regurgitation. Mitral inflow indicates normal left ventricular diastolic function. Mild tricuspid regurgitation. Tricuspid systolic velocities suggests peak right ventricular systolic pressure of 30 mmHg.
--- NOTE | 2017-05-05 08:52 | Discharge Summary ---
Discharge Summary Hospital Course Date of Admission Apr 28, 2017 at 19:00 Date of Discharge May 01, 2017 at 19:30 Admitting Diagnosis overdose HPI Christina Curran is a 32 year old female who was admitted on Apr 28, 2017 at 19:00 for Overdose Hospital Course dc summary #[id number] Discharge Medications Continued Medications: Baclofen (Baclofen) 20 Mg Tablet 10 MG, TAB Gabapentin* (Gabapentin*) 800 Mg Tablet 1200 MG ORAL THREE TIMES A DAY, TAB Hydroxyzine Pamoate (Vistaril) 25 Mg Capsule 100 MG PO, CAP Lamotrigine (Lamictal) 200 Mg Tablet 150 MG ORAL DAILY, #30 TAB 0 Refills Levothyroxine Sodium (Synthroid) 50 Mcg Tablet 50 MCG ORAL DAILY, TAB Take in the morning on an empty stomach, at least 30 minutes beforefood. Olanzapine (Zyprexa) 20 Mg Tablet 30 MG ORAL DAILY, #30 TAB 0 Refills Propranolol Hcl* (Inderal*) 40 Mg Tablet 40 MG ORAL BID, #90 TAB 0 Refills Topiramate* (Topamax*) 25 Mg Tablet 50 MG ORAL DAILY, TAB Unable to Obtain Medications (Unable To Obtain Meds) 1 Ea Ea Discharge Condition Upon Discharge: stable Discharge Disposition Patient was discharged to Psychiatric Facility ([id number]) Discharge Diagnoses: Zach (Swati)Elida NP May 05, 2017 08:52
--- NOTE | 2017-05-05 17:01 | Discharge Summary 2 SIG ---
DATE OF ADMISSION: 04/28/2017 DATE OF DISCHARGE: 05/01/2017 REASON FOR ADMISSION: The patient is a 32-year-old female with history of bipolar disorder and polysubstance dependency brought from drug recovery facility with complaint of decreased level of consciousness. Allegedly she had used Xanax, heroin, and cocaine but was sober for 1-1/2 years. The patient vomited. The patient was obtunded in the emergency room and required urgent intubation to protect her airway. The patient was transferred to ICU for further management. CT of the head done on admission in the emergency department revealed no acute intracranial pathology. Chest x-ray revealed no acute process. Chest x-ray repeated after intubation shows satisfactory endotracheal intubation. The patient upon presentation was afebrile, no leukocytosis, stable electrolytes. Of note, urine toxicology screen was positive for benzodiazepine and toxicology was negative for salicylate, Tylenol, or alcohol. ADMITTING DIAGNOSIS: 1. Acute toxic encephalopathy secondary to overdose. 2. Polysubstance dependency. 3. Suicidal attempt with overdose. 4. Acute respiratory failure, requiring intubation. 5. Bipolar disorder. HOSPITAL STAY: The patient was initially in intensive care unit, ventilator support provided, pulmonary toilet provided as needed. The patient was stable to be extubated soon and transferred to Med/surg floor. Neurology and Psychiatry psychiatric consult were requested to repeat CT of the head which revealed no acute intracranial pathology. Carotid duplex was done and was essentially negative. EEG revealed toxic moderate encephalopathy but no postictal component. The patient started on Topamax and Neurontin. Seizure precaution maintained. IV fluids discontinued. The patient was able to tolerate p.o. diet. The patient was medically stable. DVT prophylaxis provided. No sedation. Psychiatrist seen the patient and concluded that the patient met criteria for 5150. According to psychiatrist, the patient is at high risk and required transfer to psychiatric facility for further management. Psychiatrist optimized psychiatric medication regimen. Topamax dose was increased. Lexapro was discontinued. The patient started on Seroquel. Psychiatrist recommended avoid benzodiazepine, Ativan was tapered and switched to oral valium. The patient was medically cleared for PET team evaluation and subsequently the patient was transferred to [facility] at [place]. DISCHARGE DIAGNOSES: Includes: 1. Acute toxic encephalopathy secondary to overdose. 2. Suicidal attempt with overdose. 3. Acute respiratory failure, requiring intubation. 4. Status post extubation. 5. History of bipolar disorder with several suicidal episodes. 6. Possible seizure disorder. 7. History of eating disorder. 8. History of substance abuse. 9. Polysubstance abuse (heroin and cocaine). DISCHARGE MEDICATIONS: See medication reconciliation list. DISCHARGE INSTRUCTIONS: The patient discharged to [facility]. FOLLOWUP: Followup with the psychiatrist and medical doctor at the facility. Link Colon M.D. I have been assigned to dictate discharge summary on this account and I was not involved in the patient's management. Elida [facility]: Shante JOB#: [id number] CC:
== END 2017-05-01 19:30 | DRG 812 ==
LOC: EDBD 16:16 → EMR 16:40 → ICU 19:00 → EDBEDREQ 20:44 → 2E 04-29 17:41 → 4E 04-30 07:05
DX: T42.4X2A Poisoning by benzodiazepines, intentional self-harm, initial encounter (principal); J96.90 Respiratory failure, unspecified, unspecified whether with hypoxia or hypercapnia; G92 Toxic encephalopathy; F43.10 Post-traumatic stress disorder, unspecified; Y92.9 Unspecified place or not applicable; F11.20 Opioid dependence, uncomplicated; F13.20 Sedative, hypnotic or anxiolytic dependence, uncomplicated; R40.2432 Glasgow coma scale score 3-8, at arrival to emergency department; R00.1 Bradycardia, unspecified; F32.9 Major depressive disorder, single episode, unspecified; F31.9 Bipolar disorder, unspecified; G40.909 Epilepsy, unspecified, not intractable, without status epilepticus; F50.9 Eating disorder, unspecified
CPT/HCPCS: 31500; 36415; 36600; 70450; 71010; 80053; 80076; 80300; 80329; 81003; 81025; 82803; 83615; 83735; 84100; 85025; 85610; 85730; 87081; 93005; 93306; 93880; 94002; 94003; 94640; 94664; 95819; J7620